=== PATIENT | female | born 2000 | race American Indian/Alaskan Native ===

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

== ENCOUNTER 2022-05-05 17:35 | Emergency (ER) | payer MEDICAID ==
[2022-05-05 19:56] VITALS: BP 122/79; PULSE 74
== END 2022-05-05 20:07 | disposition home or self-care (01) ==
LOC: JP.ED 17:35
DX: K59.01 Slow transit constipation (principal); F17.210 Nicotine dependence, cigarettes, uncomplicated; Z79.899 Other long term (current) drug therapy
CPT/HCPCS: 74019; 74019-26; 81001; 81025; 99282; 99284

== ENCOUNTER 2023-07-01 14:45 | Emergency (ER) | payer MEDICAID ==
[2023-07-01 15:35] VITALS: BP 113/79; PULSE 67
== END 2023-07-01 18:19 | disposition home or self-care (01) ==
LOC: JP.ED 14:45
DX: S00.83XA Contusion of other part of head, initial encounter (principal); F17.210 Nicotine dependence, cigarettes, uncomplicated; Z79.899 Other long term (current) drug therapy; W21.11XA Struck by baseball bat, initial encounter
CPT/HCPCS: 70450; 99282; 99283